=== PATIENT | male | born 1955 | race Caucasian/White ===

== ENCOUNTER 2017-10-21 13:28 | Outpatient (CLI) | payer OTHER ==
[2017-10-21 14:13] LABS: Hematocrit 51.8 % (42.0-52.0); Mean Platelet Volume 6.7 fL (7.4-10.4); White Blood Cell (WBC) Count 7.9 thou/uL (4.8-10.8)
[2017-10-21 14:18] LABS: Prothrombin Time 13.9 SEC (12.0-14.7)
== END 2017-10-21 13:29 | disposition home or self-care (01) ==
LOC: LABBT 13:28
PROVIDERS: ATTEND Neurological Surgery
DX: Z01.812 Encounter for preprocedural laboratory examination (principal); M47.12 Other spondylosis with myelopathy, cervical region
CPT/HCPCS: 85027; 85610; 85730

== ENCOUNTER 2017-10-29 14:09 | Observation (INO) | payer OTHER, SELFPAY ==
[2017-10-29 15:23] LABS: #Basophils 0.1 thou/uL (0.0-0.2); #Eosinphils 0.2 thou/uL (0.0-0.7); #Lymphocytes 1.3 thou/uL (1.20-3.40); #Monocytes 1.1 thou/uL (0.11-0.59); #Neutrophils 11.1 thou/uL (1.40-6.50); %Basophils 0.5 % (0.0-1.0); %Eosinophils 1.5 % (0.0-10.0); %Lymphocytes 9.5 % (21.0-51.0); %Monocytes 7.7 % (0.0-10.0); %Neutrophils 80.8 % (42.0-75.0); Mean Corpuscular HGB CONC 32.9 g/dL (32.0-36.0); Mean Corpuscular Hemoglobin 31.8 pg (27.0-31.0); Mean Corpuscular Volume 96.5 fl (80.0-94.0); Mean Platelet Volume 6.9 fL (7.4-10.4); Platelet Count 256 thou/uL (130-400); RBC Distribution Width 12.3 % (11.5-14.5); Red Blood Cell (RBC) Count 5.02 mill/uL (4.70-6.10); White Blood Cell (WBC) Count 13.8 thou/uL (4.8-10.8)
[2017-10-29 15:30] LABS: INR-International Normal Ratio 1.1; PTT 32.3 SEC (22.9-36.1); Prothrombin Time 14.8 SEC (12.0-14.7)
[2017-10-29] MEDS ORDERED: ISOVUE-370 76%-LOCM 1 ML ONE (15:34)
[2017-10-29 15:44] LABS: ALT (SGPT) 24 U/L (8-55); AST (SGOT) 24 U/L (5-34); Albumin 4.5 g/dL (3.4-4.8); Alkaline Phosphatase 39 U/L (40-150); Anion Gap 14 mmol/L (10-20); BUN (Urea Nitrogen) 19 mg/dL (8.4-25.7); Bilirubin, Total 0.6 mg/dL (0.2-1.2); Calc. Creatinine Clearance 0 mL/min (70-130); Calcium 10.6 mg/dL (7.8-10.44); Carbon Dioxide 27 mmol/L (23-31); Chloride 98 mmol/L (98-107); Estimated GFR-MDRD Greater than 90; Globulin 3.6 g/dL (2.4-3.5); Glucose 98 mg/dL (80-115); Potassium 4.6 mmol/L (3.5-5.1); Protein, Total 8.1 g/dL (5.8-8.1); Sodium 134 mmol/L (136-145)
--- NOTE | 2017-10-29 15:56 | ULT ---
EXAM: LEFT LOWER EXTREMITY VENOUS ULTRASOUND WITH DOPPLER 10/29/17 HISTORY: Left leg swelling and pain. COMPARISON: None. TECHNIQUE: Hidalgo scale, color flow, doppler imaging with spectral waveform analysis performed in the left lower e xtremity venous system. FINDINGS: There is lack of complete compressibility and inadequate flow in the common femoral vein, femoral vei n, and popliteal vein. There is echogenic material and decreased flow in the profunda femoral vein. T here appears to be significantly diminished flow in the greater saphenous vein. There is flow in the posterior tibial vein. IMPRESSION: Left lower extremity deep vein thrombus. DVT is noted from the common femoral vein to the popliteal v ein. POS: [facility]
[2017-10-29] MEDS ORDERED: Enoxaparin Sodium 80 MG/0.8 ML SYRINGE ONE (16:03)
[2017-10-29] MEDS ORDERED: Enoxaparin Sodium 30 MG/0.3 ML SYRINGE ONE ×2 (16:03→16:04)
--- NOTE | 2017-10-29 16:38 | CT ---
CT ARTERIOGRAM CHEST WITH IV CONTRAST AND 3D MIP IMAGIN10/29/17 HISTORY: Dyspnea. Chest pain. FINDINGS: There is good contrast opacification of the pulmonary arteries and thoracic aorta with normal branchi ng of the great vessels. Very mild arterial calcifications apparent. There is no pleural fluid, pneu mothorax, or mediastinal adenopathy apparent. IMPRESSION: No CT evidence of pulmonary embolus. POS: [facility]
[2017-10-29 16:51] LABS: CKMB 3.8 ng/mL (0-6.6); Troponin I 0.016 ng/mL (< 0.028)
[2017-10-29] MEDS ORDERED: Ondansetron HCl/PF 4 MG/2 ML Vial ONE (17:03)
[2017-10-29] MEDS ORDERED: Morphine 4 MG/ML VIAL ONE (17:03)
--- NOTE | 2017-10-29 17:11 | RAD ---
PORTABLE CHEST: 10/29/17 HISTORY: Dyspnea. Heart size and mediastinum are within normal limits. The lungs are clear of infiltrates. There are no significant bony findings. IMPRESSION: No active intrathoracic disease. POS: [facility]
[2017-10-29] MEDS ORDERED: Ondansetron HCl/PF 4 MG/2 ML Vial IVP PRN (17:49)
[2017-10-29] MEDS ORDERED: Ondansetron ODT 4 MG TAB SL PRN (17:49)
[2017-10-29] MEDS ORDERED: Acetaminophen 325 MG TAB PO PRN (17:49)
[2017-10-29 17:59] VITALS: BMI 24.7
[2017-10-29] MEDS: HYDROcodone/Acetaminophen 5/325 mg Tablet PO PRN (20:18)
[2017-10-29] MEDS: Sodium Chloride 0.9% 1,000 ML IV SCH (20:27)
[2017-10-29] MEDS ORDERED: Metoprolol Tartrate 25 MG TAB PO SCH (22:45)
[2017-10-29] MEDS ORDERED: Dronedarone HCl 400 MG TAB PO SCH (22:45)
[2017-10-29] MEDS: Morphine 4 MG/ML VIAL SLOW IVP PRN (22:45)
[2017-10-29] MEDS ORDERED: traZODone HCl 50 MG TAB PO SCH (22:45)
[2017-10-29] MEDS ORDERED: Loratadine 10 MG TAB PO SCH (22:45)
[2017-10-30] MEDS: Morphine 4 MG/ML VIAL SLOW IVP PRN ×3 (02:44→21:42)
[2017-10-30] MEDS: Enoxaparin Sodium 100 MG/ML SYRINGE SC SCH ×2 (04:11→17:08)
--- NOTE | 2017-10-30 06:38 | HP ---
CHIEF COMPLAINT: Pain in the left leg. HISTORY OF PRESENT ILLNESS: He is a 62-year-old man with no past medical history. He has presented to the hospital with redness, swelling of left leg with pain and tenderness for the last 2 days. He has been less mobile for the last one week because he is going for fusion back surgery. He denies an y fever, any injury, any chest pain, and any short of breath. In the ED, he was given morphine and Z ofran for the pain. When he comes in to the ER, pulse 83, blood pressure 140/59, temperature 98.3, r espiration rate 18. CURRENT MEDICATIONS: He takes in home, Multaq 400 mg 2 times daily for arrhythmias, Demerol 50 mg ev maggie 6 hours, Zoloft 100 mg daily, meloxicam 15 mg daily, trazodone 100 mg daily, metoprolol 20 mg aranza ly, Depo-Testosterone 200 mg intramuscular once a week. PERSONAL HISTORY: Does not smoke, does not drink. Denied any drug use. PAST MEDICAL HISTORY: No history of DVT in the past. PAST SURGICAL HISTORY: No surgical history. REVIEW OF SYSTEMS: Constitutional: He denies any fever, any malaise, and any weight loss. HEENT: He denies any ear pain, earache and eye discharge. Respiration: He denies any chest pain, any cough , any of short of breath, and any wheezing. Cardiovascular: Denies arrhythmias, any palpitation, an y chest pain, and any orthopnea. Abdomen: Soft. Denies any nausea, vomiting, diarrhea. Back: Den ies any musculoskeletal pain. Extremity: He has pain in the left leg with swelling. Skin: No rash noted. PHYSICAL EXAMINATION: GENERAL: When examined him, he is a middle-aged man, not in distress. VITAL SIGNS: Pulse 80, blood pressure 130/65, respiration rate 18, temperature 98.4, saturating 96% on room air. HEENT: Head is atraumatic, normocephalic. Pupils are round, reactive. External ocular muscles inta ct. Ears, nose, and throat normal. Tongue mucosa is moist. NECK: Supple, no JVD, no thyromegaly. LUNGS: Chest has normal vesicular breathing, no added sound. No chest wall tenderness noted. CARDIOVASCULAR: S1, S2 audible. No S3, no S4. ABDOMEN: Soft. Bowel sounds audible, no organomegaly, no tenderness. EXTREMITIES: No pedal edema. Swelling of the left leg up to the thigh. Mild edema noted similar ti mes and no further focal deficit. LABORATORY DATA: WBC 30.8, hemoglobin 16.0, hematocrit 48.3, platelets 226. INR 1.0, PTT 32.2. Dop pler scan shows proximal left lower extremity DVT. ASSESSMENT AND PLAN: 1. Acute deep venous thrombosis left lower extremity secondary to immobilization, currently on Loven ox 90 mg q.12 hours. Continue pain management. Elevate the leg. 2. History of arrhythmias. Continue metoprolol and Multaq. 3. Deep venous thrombosis, treatment is Lovenox. Discussed with the patient of the option about the Coumadin and Xarelto for the long-term deep venous thrombosis management. Risk and benefit of the C oumadin and Xarelto has explained. The Coumadin has an antidote so we can reverse the bleeding fact but for the Xarelto, there is no antidote so we will discuss tomorrow more about this management, con tinue current management.
[2017-10-30] MEDS: HYDROcodone/Acetaminophen 5/325 mg Tablet PO PRN ×5 (07:11→23:56)
[2017-10-30] MEDS ORDERED: Dronedarone HCl 400 MG TAB PO SCH ×2 (09:00→17:00)
[2017-10-30] MEDS: Sodium Chloride 0.9% 1,000 ML IV SCH ×2 (09:39→22:28)
--- NOTE | 2017-10-30 13:01 | PDOC.PN ---
- Subjective Encounter Start Date: 10/30/17 Encounter Start Time: 13:00 Subjective: pt seen and examined for LEFT leg DVT -: pt denies any CP, swelling left leg decresed - Objective MAR Reviewed: Yes Vital Signs & Weight: Vital Signs (12 hours) Temp Pulse Resp BP Pulse Ox 10/30/17 11:37 98.2 F 77 18 134/73 95 10/30/17 07:40 98.5 F 68 16 10/30/17 07:27 98.8 F 77 18 119/57 L 97 Weight Weight 192 lb 9.6 oz I&O: 10/29/17 10/30/17 10/31/17 06:59 06:59 06:59 Intake Total 1292 558 Output Total 500 600 Balance 792 -42 Result Diagrams: 10/29/17 15:17 10/29/17 15:17 Radiology Reviewed by me: Yes Phys Exam - Physical Examination HEENT: PERRLA, moist MMs, sclera anicteric, TM's clear, oral pharynx no lesions , 2+ tonsils Neck: no nodes, no JVD, supple, full ROM Respiratory: no wheezing, no rales, no rhonchi, wheezing present, clear to auscultation bilateral Cardiovascular: RRR, no significant murmur, no rub, gallop, irregular Gastrointestinal: soft, non-tender, no distention, positive bowel sounds Musculoskeletal: edema present Left Leg is swollen up to thigh with erythema Dx/Plan (1) Dvt femoral (deep venous thrombosis) Code(s): I82.419 - ACUTE EMBOLISM AND THROMBOSIS OF UNSPECIFIED FEMORAL VEIN Status: Acute (2) HTN (hypertension), benign Code(s): I10 - ESSENTIAL (PRIMARY) HYPERTENSION Status: Chronic (3) Arrhythmia Code(s): I49.9 - CARDIAC ARRHYTHMIA, UNSPECIFIED Status: Chronic - Plan cont current plan of care, DVT proph w/lovenox 1) Continue Lovenox 1mg/kg q 12hrs, will add Coumadin tonight -: 2) Hypercoaguable work up sent -: 3) Continue metoprolol for HTN -: 4) DVT treatment is Lovenox -: 5) H/o Arrthymia continue Multaq * . Review of Systems - Review of Systems Respiratory: negative: Cough, Dry, Shortness of Breath, Hemoptysis, SOB with Excertion, Pleuritic Pain, Sputum, Wheezing Cardiovascular: negative: chest pain, palpitations, orthopnea, paroxysmal nocturnal dyspnea, edema, light headedness, other Gastrointestinal: negative: Nausea, Vomiting, Abdominal Pain, Diarrhea, Constipation, Melena, Hematochezia, Other Genitourinary: negative: Dysuria, Frequency, Incontinence, Hematuria, Retention , Other Musculoskeletal: Leg Pain - Medications/Allergies Allergies/Adverse Reactions: Allergies Allergy/AdvReac Type Severity Reaction Status Date / Time albuterol Allergy Verified 10/29/17 19:12 meperidine [From Demerol] Allergy Verified 10/29/17 19:12 Medications: Current Medications Hydrocodone Bitart/Acetaminophen ([place] 5/325) 1 tab PO Q4H PRN PRN Reason: PAIN SCALE 1-5 Hydrocodone Bitart/Acetaminophen ([place] 5/325) 2 tab PO Q4H PRN PRN Reason: PAIN SCALE 6-10 Last Admin: 10/30/17 11:35 Dose: 2 tab Dronedarone (Multaq) 400 mg PO BID [facility] Last Admin: 10/30/17 08:41 Dose: 400 mg Dronedarone (Multaq) 400 mg PO BID[facility] Enoxaparin Sodium (Lovenox) 90 mg SC 0400,1600 [facility] Last Admin: 10/30/17 04:11 Dose: 90 mg Sodium Chloride (Normal Saline 0.9%) 1,000 mls @ 75 mls/hr IV .[id number] [facility] Last Admin: 10/30/17 09:39 Dose: 1,000 mls Loratadine (Claritin) 10 mg PO HS [facility] Metoprolol Succinate (Toprol Xl) 25 mg PO QPM [facility] Metoprolol Tartrate (Lopressor) 25 mg PO QPM [facility] Morphine Sulfate (Morphine) 4 mg SLOW IVP Q4H PRN PRN Reason: Pain Last Admin: 10/30/17 02:44 Dose: 4 mg Sertraline HCl (Zoloft) 50 mg PO DAILY [facility] Last Admin: 10/30/17 08:41 Dose: 50 mg Sertraline HCl (Zoloft) 50 mg PO DAILY [facility] Sodium Chloride (Flush - Normal Saline) 10 ml IVF PRN PRN PRN Reason: Saline Flush Trazodone HCl (Desyrel) 100 mg PO HS [facility] Trazodone HCl (Desyrel) 100 mg PO HS [facility]
[2017-10-30 13:49] LABS: INR-International Normal Ratio 1.2; Prothrombin Time 15.4 SEC (12.0-14.7)
[2017-10-30 13:50] LABS: D-Dimer Test 1.79 *mcg/mL (0.27-0.43)
[2017-10-30 14:24] LABS: Protein C Activity 106 % (78-152)
[2017-10-30] MEDS: traZODone HCl 50 MG TAB PO SCH ×2 (15:45→19:55)
[2017-10-30] MEDS: Warfarin Sodium 7.5 MG TAB PO SCH (17:09)
[2017-10-30] MEDS: Dronedarone HCl 400 MG TAB PO SCH (19:55)
[2017-10-30] MEDS: Loratadine 10 MG TAB PO SCH (19:55)
[2017-10-30] MEDS ORDERED: Metoprolol Tartrate 25 MG TAB PO SCH (21:00)
[2017-10-30] MEDS ORDERED: traZODone HCl 50 MG TAB PO SCH (21:00)
[2017-10-31 00:14] LABS: INR-International Normal Ratio 1.2; Prothrombin Time 15.8 SEC (12.0-14.7)
[2017-10-31] MEDS: Enoxaparin Sodium 100 MG/ML SYRINGE SC SCH ×2 (04:00→16:37)
[2017-10-31] MEDS: HYDROcodone/Acetaminophen 5/325 mg Tablet PO PRN ×5 (06:08→23:22)
[2017-10-31 08:24] LABS: INR-International Normal Ratio 1.4; PTT 60.1 SEC (22.9-36.1); Prothrombin Time 17.8 SEC (12.0-14.7)
[2017-10-31] MEDS: Dronedarone HCl 400 MG TAB PO SCH ×2 (10:23→20:15)
[2017-10-31] MEDS: Sodium Chloride 0.9% 1,000 ML IV SCH (12:33)
[2017-10-31 13:23] LABS: Platelet Count 245 thou/uL (130-400)
[2017-10-31 13:43] LABS: Calc. Creatinine Clearance 114 mL/min (70-130); Estimated GFR-MDRD Greater than 90
--- NOTE | 2017-10-31 14:14 | PDOC.PN ---
- Subjective Encounter Start Date: 10/31/17 Encounter Start Time: 14:13 Subjective: Pt seen and examined for Left Leg DVT -: denies any CP, swelling of leg improving - Objective MAR Reviewed: Yes Vital Signs & Weight: Vital Signs (12 hours) Temp Pulse Resp BP BP Pulse Ox 10/31/17 10:54 98.3 F 73 20 122/58 L 95 10/31/17 07:51 98.8 F 77 16 121/60 96 10/31/17 07:50 98.8 F 73 16 10/31/17 04:00 98.8 F 73 16 115/63 94 L Weight Weight 192 lb 9.6 oz I&O: 10/30/17 10/31/17 11/01/17 06:59 06:59 06:59 Intake Total 1292 2449 1050 Output Total 500 1900 Balance 837 879 6536 Result Diagrams: 10/31/17 13:10 10/31/17 13:10 Radiology Reviewed by me: Yes Phys Exam - Physical Examination HEENT: PERRLA, moist MMs, sclera anicteric, TM's clear, oral pharynx no lesions , 2+ tonsils Neck: no nodes, no JVD, supple, full ROM Respiratory: no wheezing, no rales, no rhonchi, wheezing present, clear to auscultation bilateral Cardiovascular: RRR, no significant murmur, no rub, gallop, irregular Gastrointestinal: soft, non-tender, no distention, positive bowel sounds Left Leg shows mild erythema Neurological: non-focal, normal sensation, moves all 4 limbs Dx/Plan (1) Dvt femoral (deep venous thrombosis) Code(s): I82.419 - ACUTE EMBOLISM AND THROMBOSIS OF UNSPECIFIED FEMORAL VEIN Status: Acute (2) HTN (hypertension), benign Code(s): I10 - ESSENTIAL (PRIMARY) HYPERTENSION Status: Chronic (3) Arrhythmia Code(s): I49.9 - CARDIAC ARRHYTHMIA, UNSPECIFIED Status: Chronic - Plan DVT proph w/lovenox Continue Lovenox 1mg/kg with Coumadin #2 -: Follow Pt, INR -: H/o Arrthymia continue Multaq and metprolol -: Hypercoaguable work up is pending * . Review of Systems - Review of Systems Eyes: negative: Pain, Vision Change, Conjunctivae Inflammation, Eyelid Inflammation, Redness, Other Cardiovascular: negative: chest pain, palpitations, orthopnea, paroxysmal nocturnal dyspnea, edema, light headedness, other Gastrointestinal: negative: Nausea, Vomiting, Abdominal Pain, Diarrhea, Constipation, Melena, Hematochezia, Other Genitourinary: negative: Dysuria, Frequency, Incontinence, Hematuria, Retention , Other - Medications/Allergies Allergies/Adverse Reactions: Allergies Allergy/AdvReac Type Severity Reaction Status Date / Time albuterol Allergy Verified 10/29/17 19:12 meperidine [From Demerol] Allergy Verified 10/29/17 19:12 Medications: Current Medications Hydrocodone Bitart/Acetaminophen ([place] 5/325) 1 tab PO Q4H PRN PRN Reason: PAIN SCALE 1-5 Hydrocodone Bitart/Acetaminophen ([place] 5/325) 2 tab PO Q4H PRN PRN Reason: PAIN SCALE 6-10 Last Admin: 10/31/17 10:26 Dose: 2 tab Dronedarone (Multaq) 400 mg PO BID [facility] Last Admin: 10/31/17 10:23 Dose: 400 mg Enoxaparin Sodium (Lovenox) 90 mg SC 0400,1600 [facility] Last Admin: 10/31/17 04:00 Dose: 90 mg Sodium Chloride (Normal Saline 0.9%) 1,000 mls @ 75 mls/hr IV .[id number] [facility] Last Admin: 10/31/17 12:33 Dose: 1,000 mls Loratadine (Claritin) 10 mg PO HS [facility] Last Admin: 10/30/17 19:55 Dose: 10 mg Metoprolol Succinate (Toprol Xl) 25 mg PO QPM [facility] Last Admin: 10/30/17 19:55 Dose: 25 mg Morphine Sulfate (Morphine) 4 mg SLOW IVP Q4H PRN PRN Reason: Pain Last Admin: 10/30/17 21:42 Dose: 4 mg Sertraline HCl (Zoloft) 50 mg PO DAILY [facility] Last Admin: 10/31/17 10:23 Dose: 50 mg Sodium Chloride (Flush - Normal Saline) 10 ml IVF PRN PRN PRN Reason: Saline Flush Trazodone HCl (Desyrel) 100 mg PO HS [facility] Last Admin: 10/30/17 19:55 Dose: 100 mg Warfarin Sodium (Coumadin) 7.5 mg PO 1700 [facility] Last Admin: 10/30/17 17:09 Dose: 7.5 mg
[2017-10-31] MEDS: Warfarin Sodium 7.5 MG TAB PO SCH (16:37)
[2017-10-31] MEDS: Morphine 4 MG/ML VIAL SLOW IVP PRN ×2 (16:38→20:45)
[2017-10-31] MEDS: traZODone HCl 50 MG TAB PO SCH (20:15)
[2017-10-31] MEDS: Loratadine 10 MG TAB PO SCH (20:15)
[2017-11-01] MEDS: Sodium Chloride 0.9% 1,000 ML IV SCH ×2 (02:00→15:00)
[2017-11-01] MEDS: HYDROcodone/Acetaminophen 5/325 mg Tablet PO PRN ×5 (04:16→22:05)
[2017-11-01] MEDS: Enoxaparin Sodium 100 MG/ML SYRINGE SC SCH (04:16)
[2017-11-01 04:57] LABS: INR-International Normal Ratio 2.3; PTT 72.8 SEC (22.9-36.1); Prothrombin Time 26.3 SEC (12.0-14.7)
--- NOTE | 2017-11-01 07:47 | PDOC.PN ---
- Subjective Encounter Start Date: 11/01/17 Encounter Start Time: 08:00 Subjective: Pain in LLE better, still a little swollen. No CP/SOB. No PCP or insurance. -: Lives near [place] and was going to establish at their clinic. - Objective MAR Reviewed: Yes Vital Signs & Weight: Vital Signs (12 hours) Temp Pulse Resp BP Pulse Ox 11/01/17 04:15 98.2 F 73 14 121/69 97 10/31/17 23:20 68 14 103/58 L 94 L Weight Weight 192 lb 9.6 oz I&O: 10/31/17 11/01/17 11/02/17 06:59 06:59 06:59 Intake Total 2449 2732 Output Total 1900 1999 Balance 549 732 Result Diagrams: 10/31/17 13:10 10/31/17 13:10 Phys Exam - Physical Examination Constitutional: NAD HEENT: moist MMs Respiratory: no wheezing, no rales, no rhonchi, clear to auscultation bilateral Cardiovascular: RRR, no significant murmur Gastrointestinal: soft, positive bowel sounds distended peripheral veins in left leg, no pitting edema Neurological: non-focal, moves all 4 limbs Psychiatric: normal affect, A&O x 3 Dx/Plan (1) Dvt femoral (deep venous thrombosis) Code(s): I82.419 - ACUTE EMBOLISM AND THROMBOSIS OF UNSPECIFIED FEMORAL VEIN Status: Acute Qualifiers: Chronicity: acute Laterality: left Qualified Code(s): I82.412 - Acute embolism and thrombosis of left femoral vein Comment: INR therapeutic today. Will d/c Lovenox. Arrange outpatient followup and discharge home. (2) Arrhythmia Code(s): I49.9 - CARDIAC ARRHYTHMIA, UNSPECIFIED Status: Chronic (3) HTN (hypertension), benign Code(s): I10 - ESSENTIAL (PRIMARY) HYPERTENSION Status: Chronic (4) Chronic back pain Code(s): M54.9 - DORSALGIA, UNSPECIFIED; G89.29 - OTHER CHRONIC PAIN Status: Chronic - Plan cont current plan of care, out of bed/ambulate Only 2 days of Warfarin and already therapeutic, will decrease dose to 5mg -: daily. -: Needs Coumadin f/u in 2 days after D/C. No PCP and Friday is holiday. May -: need to keep at least till tomorrow and have f/u o/p on Friday if can -: arrange. * . - Discharge Day Encounter end time: 08:30
[2017-11-01] MEDS: Dronedarone HCl 400 MG TAB PO SCH ×2 (08:44→20:17)
[2017-11-01] MEDS ORDERED: Warfarin Sodium 5 MG TAB PO SCH (17:00)
[2017-11-01] MEDS: traZODone HCl 50 MG TAB PO SCH (20:18)
[2017-11-01] MEDS: Loratadine 10 MG TAB PO SCH (20:18)
[2017-11-02] MEDS: HYDROcodone/Acetaminophen 5/325 mg Tablet PO PRN ×2 (02:31→07:40)
[2017-11-02] MEDS: Sodium Chloride 0.9% 1,000 ML IV SCH (04:23)
[2017-11-02 05:01] LABS: INR-International Normal Ratio 2.9; PTT 56.8 SEC (22.9-36.1); Prothrombin Time 31.8 SEC (12.0-14.7)
[2017-11-02 08:23] VITALS: BP 149/74; TEMP 99.6
[2017-11-02] MEDS: Dronedarone HCl 400 MG TAB PO SCH (09:43)
[2017-11-06 18:10] LABS: Hexagonal Phospholipid Neut 25 sec (.)
== END 2017-11-02 09:58 | disposition home or self-care (01) ==
LOC: ERS 14:09 → 2SW 16:35
PROVIDERS: ADMIT Family Medicine; ATTEND Family Medicine
DX: I82.4Z2 Acute embolism and thrombosis of unspecified deep veins of left distal lower extremity (principal); I49.9 Cardiac arrhythmia, unspecified; Z79.899 Other long term (current) drug therapy
CPT/HCPCS: 36415; 71010; 71275; 80053; 81240; 82553; 82565; 83090; 84484; 85014; 85018; 85025; 85049; 85240; 85300; 85303; 85305; 85307; 85379; 85598; 85610; 85730; 90471; 90732; 93005; 96361; 96372; 96374; 96375; 96376; G0009; G0378; J1650; J2270; J2405

== ENCOUNTER 2018-07-23 13:56 | Outpatient (CLI) | payer OTHER ==
--- NOTE | 2018-07-23 15:17 | RAD ---
CHEST 2 VIEWS: Date: 07/23/18 HISTORY: Shortness of breath. FINDINGS: Heart size and mediastinum are within normal limits. Lungs are clear of infiltrates. There are arthri tic changes of the spine. IMPRESSION: No active intrathoracic disease. POS: [facility]
== END 2018-07-23 13:57 | disposition home or self-care (01) ==
LOC: RAD-FRANK 13:56
PROVIDERS: ATTEND Nurse Practitioner Family
DX: R06.02 Shortness of breath (principal)
CPT/HCPCS: 71046

== ENCOUNTER 2019-09-09 11:22 | Outpatient (CLI) | payer MEDICARE ==
--- NOTE | 2019-09-09 11:44 | RAD ---
EXAM: Two views chest PROVIDED CLINICAL HISTORY: Cough COMPARISON: 07/23/2018 FINDINGS: Cardiac silhouette and pulmonary vasculature are within normal limits. The inferior aspect right lat eral costophrenic angle is excluded from view. The lungs are otherwise clear. Degenerative changes are again seen in the spine. IMPRESSION: No acute cardiopulmonary process.
== END 2019-09-09 11:23 | disposition home or self-care (01) ==
LOC: RAD-FRANK 11:22
PROVIDERS: ATTEND Nurse Practitioner Family
DX: J40 Bronchitis, not specified as acute or chronic (principal)
CPT/HCPCS: 71046